=== PATIENT | female | born 1960 | race Caucasian/White ===

== ENCOUNTER 2017-06-01 20:11 | Inpatient (IN) | payer OTHER ==
[~2017-06-01] VITALS: Ht 172.7 cm; Wt 88.0 kg
--- NOTE | 2017-06-01 20:20 | NUR ---
EKG COMPLETED. PT TO ROOM T2B.
--- NOTE | 2017-06-01 21:00 | NUR ---
COMFORT MEASURES AND SUPPORTIVE CARE INITIATED. SEEN BY ERMD. ORDERS NOTED.
[2017-06-01 21:39] LABS: BASOPHIL % 0.3 % (0-2); PLATELET COUNT 377 x10^3mcL (130-400); RED CELL DISTRIBUTION WIDTH 13.5 % (11.5-14.5)
[2017-06-01 21:50] LABS: CALCIUM 9.1 mg/dL (8.5-10.1); CARBON DIOXIDE 30.9 mmol/L (21-32); CREATININE SERUM 1.2 mg/dL (0.6-1.0); POTASSIUM SERUM 3.2 mmol/L (3.5-5.1)
[2017-06-01 21:57] LABS: ALBUMIN 3.5 g/dL (3.4-5.0); BILIRUBIN TOTAL 0.8 mg/dL (0.20-1.00); TOTAL PROTEIN, SERUM 7.9 g/dL (6.4-8.2)
--- NOTE | 2017-06-01 23:38 | NUR ---
PT REMAINS STABLE. IV ABX INITIATED. ADDITIONAL ANALGESIA GIVEN AT PT REQUEST. REPORT CALLED TO HEYDI LOPEZ FOR ADMIT TO ROOM 253B.
--- NOTE | 2017-06-01 23:56 | NUR ---
KANDI INITIATED. PREP FOR TRANSPORT TO FLOOR. PT STATES MOD PAIN RELIEF FROM MORPHINE 2MG IVP.VSS. NAD.
--- NOTE | 2017-06-01 23:59 | NUR ---
PT UNABLE TO URINATE THROUGHOUT ED COURSE. URINE NOT COLLECTED. REPORTED TO FLOOR RN.
[2017-06-02] VITALS (11 sets, daily range): BP systolic 82–118; BP diastolic 38–76; Ht 172.7 cm; Wt 88.0 kg
[2017-06-02 00:09] LABS: CHOLESTEROL/HDL RATIO 3.1; MAGNESIUM 2.3 mg/dL (1.8-2.4); PHOSPHOROUS 4.1 mg/dL (2.5-4.9); T3 TOTAL 0.95 ng/mL
[2017-06-02 00:16] LABS: FREE T4 1.16 ng/dL (0.76-1.46); FREE THYROXINE INDEX 2.6 ug/dL (1.4-4.5); T4(THYROXINE) 7.8 ug/dL (4.7-13.3)
--- NOTE | 2017-06-02 00:17 | NUR ---
REC'D PT FROM ER VIA LASHAUN. PT IS AAOX4. TELE #24 SR. PT C/O 10/10 BUTTOCK PAIN. RESP EVEN AND UNLABORED. NO SOB NOTED. TRACE EDEMA NOTED TO BLE. ABD SOFT. BS ACTIVE X4. PT C/O CONSTIPATION. IV NOTED TO . FLAGYL CONTINUES TO INFUSE. ORIENTED PT TO CALL LIGHT. BED IN LOWEST POSITION. WILL ENDORSE TO PRIMARY RN.
--- NOTE | 2017-06-02 00:58 | NUR ---
DR GOODSON AT BEDSIDE.
--- NOTE | 2017-06-02 01:00 | NUR ---
DR LEA AT BEDSIDE ASSESSING PATIENT, SKIN WARM AND DRY TO TOUCH. PERIRECTAL ABSCESS STILL CLOSED, NO DRAINAGE NOTED. BILATERA; LOWER EXTREMITIES WITH TRACED EDEMA. INSTRUCTED PATIENT TO SAVE URINE FOR UA/CS AND URINF DRUG SCREENING. MAINTAINED ON NPO PER MD'S ORDER. PT COOPERATIVE WITH CURRENT PLAN OF CARE.
--- NOTE | 2017-06-02 01:10 | NUR ---
POTASSIUM LEVEL =3.2 DR DICKERSON MADE AWARE AWAITING FOR NEW ORDER. WILL REPEAT BMP AT 0500. WILL CONTINUE TO MONITOR.
--- NOTE | 2017-06-02 03:10 | NUR ---
C/O SEVERE PERIRCTAL PAIN ON SCALE 10/10. DILAUDID 0.5MG GIVEN IVP PRN MEDICATION. WILL CONTINUE TO MONITOR.
--- NOTE | 2017-06-02 06:04 | NUR ---
URINE SPECIMEN COLLECTED FOR UA AND UDS AND SENT TO LAB. GOOD PERICARE RENDERED. STARTED ON ATB IVPB FOR MANAGEMENT OF PERIRECTAL ABSCESS. NO ADVERSE REACTION NOTED FROM ATB THERAPY. KEPT CLEAN AND DRY. ALL NEEDS ATTENDED. APPARENTLY COMFORTABLE AT THIS TIME.
[2017-06-02 06:51] LABS: BASOPHIL % 0.4 % (0-2); PLATELET COUNT 292 x10^3mcL (130-400); RED CELL DISTRIBUTION WIDTH 13.4 % (11.5-14.5)
--- NOTE | 2017-06-02 07:40 | NUR ---
PT RECEIVED AAOX4, CONVERSING WELL IN FULL SENTENCES. RESP EVEN AND UNLABORED ON RA. DENIES ANY SOB OR COUGH. TELE #24, SR, HR 74. DENIES ANY CP OR PRESSURE. IV ON RHAND INTACT, 20G, INFUSING NS AT 100ML/HR. ABD ROUND/SOFT WITH ACTIVE BS IN ALL QUADS. VOIDING WELL WITH BRP. AMBULATES INDEPENDENTLY. C/O PERIRECTAL PAIN ON AMBULATION. KEPT NPO ORDERED. CALL LIGHT WITHIN REACH.
[2017-06-02 07:56] LABS: CALCIUM 8.2 mg/dL (8.5-10.1); CARBON DIOXIDE 26.6 mmol/L (21-32); CHLORIDE SERUM 104 mmol/L (98-107); GFR1 > 60 mL/min; GLUCOSE SERUM 101 mg/dL (74-106); MAGNESIUM 1.9 mg/dL (1.8-2.4); PHOSPHOROUS 3.5 mg/dL (2.5-4.9); POTASSIUM SERUM 3.3 mmol/L (3.5-5.1); SODIUM SERUM 139 mmol/L (136-145)
[2017-06-02 08:05] LABS: AMPHETAMINE QUAL UR POSITIVE (NEG <=1000)
--- NOTE | 2017-06-02 08:40 | NUR ---
SPOKE WITH OUR PHARMACIST. PT TOOK XARELTO AT HOME AT 1130. PER PHARMACIST, NEEDS TO WAIT 24HOURS BEFORE STARTING HEPARIN DRIP.
--- NOTE | 2017-06-02 08:49 | NUR ---
BP 88/47, MAP 55 ON RIGHT ARM. RECHECK BP 89/51, MAP 61 ON LEFT ARM. PT ASYMPTOMATIC, DENIES ANY DIZZINESS OR CHEST PAIN. HEAD OF BED LOWERED. DR JULIEN PAGED TO MAKE AWARE.
[2017-06-02 08:54] LABS: UA SPECIFIC GRAVITY <=1.005 (1.005-1.035); microscopic required? YES; urine erythrocyte 1+ (NEGATIVE)
--- NOTE | 2017-06-02 10:01 | NUR ---
HOSE SPRAYER CALLED TO REPORT HR 45. CHECKED ON PATIENT, PT IN DEEP SLEEP. EASILY AROUSABLE TO VOICE. ASYMPTOMATIC. DENIES ANY DIZZINESS OR CHEST PAIN. TEMP 98.3, BP 82/39, MAP 49, HR 62, SAT 94% ON RA. DR JULIEN MADE AWARE, AT BEDSIDE TO ASSESS.
--- NOTE | 2017-06-02 11:14 | NUR ---
500ML NS BOLUS COMPLETE. BP 83/38, MAP 52, HR 56. ASYMPTOMATIC. HOB KEPT LOW. DR JULIEN PAGED TO MAKE AWARE.
--- NOTE | 2017-06-02 11:30 | NUR ---
PT SCHEDULED FOR I&D AT 1500. HEPARIN DRIP NOT STARTED. DR JULIEN MADE AWARE.
--- NOTE | 2017-06-02 13:27 | NUR ---
CONSENT FOR I&D SIGNED BY PATIENT. ALL QUESTIONS ADDRESSED AT THIS TIME.
--- NOTE | 2017-06-02 13:40 | NUR ---
BP 105/57, HR 67 AFTER 2ND 500ML NS BOLUS. PT REMAINS ASYMPTOMATIC. DR AVENDANO TO MAKE AWARE. WILL CONTINUE TO MONITOR
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
--- NOTE | 2017-06-02 13:55 | NUR ---
NEW IV STARTED BY RN STUDENT UNDER INSTRUCTOR SUPERVISION. 20G IV STARTED ON RFA, ATTEMPTED X1. PT TOLERATED WELL WITHOUT COMPLAINTS. IV WITH GOOD BLOOD RETURN NOTED.
--- NOTE | 2017-06-02 15:53 | NUR ---
CONFIRMED WITH DR JULIEN NOT TO START HEPARIN DRIP. PT TO START XARELTO TODAY.
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
--- NOTE | 2017-06-02 18:44 | NUR ---
PT MEDICATED FOR BUTTOCK PAIN ORDERED PRN, SEE EMAR. PT CURRENTLY ASLEEP WITH RESP EVEN AND UNLABORED. TOLERATED DINNER WELL WITH NO C/O NAUSEA OR ABD PAIN. WILL CONTINUE TO MONITOR.
--- NOTE | 2017-06-02 20:00 | NUR ---
RECEIVED PT IN BED, ALERT AND ORIENTED. DENIES HEADACHE/DIZZINESS. RESP. EVEN AND UNLABORED. ON ROOM AIR, LUNGS SOUNDS CLEAR BILAT. NO DISTRESS NOTED. SR/SB ON THE MONITOR, DENIES CHEST PAIN OR ANY DISCOMFORT AT THIS TIME. AFEBRILE AND VITAL SIGNS STABLE. IVF, NS AT 100ML/HR, INTACT AND INFUSING VIA RFA, SITE CLEAR. NO COMPLAINTS NOTED AT THIS TIME. ASSISTED WITH HS CARE. CALL LIGHT WITHIN REACH. WILL CONTINUE TO MONITOR.
--- NOTE | 2017-06-02 23:00 | NUR ---
CONPLAINED OF PAIN TO BACK/BUTTOCKS , /, MEDICATED WITH NORCO PO ORDERED. WILL CONTINUE TO MONITOR.
--- NOTE | 2017-06-03 00:34 | NUR ---
PT STATES PAIN RELIEF. MEDICATED WITH AMBIEN PO FOR SLEEP PER PT REQUEST. WILL CONTINUE TO MONITOR.
--- NOTE | 2017-06-03 02:14 | NUR ---
AWAKE, COMPLAINING OF BACK PAIN, 01/11, REQUWSTING PAIN MED. MEDICATED WITH NORCO PO ORDERED. WILL CONTINUE TO MONITOR.
--- NOTE | 2017-06-03 04:18 | NUR ---
NO COMPLAINTS NOTED. SLEEPING , EASILY AROUSABLE. NO DISTRESS NOTED. WILL CONTINUE TO MONITOR.
[2017-06-03 05:25] VITALS: BP 96/56
--- NOTE | 2017-06-03 06:13 | NUR ---
NO COMPLAINTS NOTED AT THIS TIME. DOOZING OFF AND ON, RESP. EVEN AND UNLABORED. NO DISTRESS NOTED. AFEBRILE AND VITAL SIGNS STABLE. SR ON THE MONITOR,DENIES CP OR PRESSURE. DUE MEDS GIVEN ORDERED, ANETA. WELL. IVF INTACT AND INFUSING WELL, SITE CLEAR.VOIDING FREELY. KEPT COMFORTABLE. WILL CONTINUE TO MONITOR.
[2017-06-03 06:31] LABS: BASOPHIL % 0.3 % (0-2); PLATELET COUNT 273 x10^3mcL (130-400); RED CELL DISTRIBUTION WIDTH 13.6 % (11.5-14.5)
[2017-06-03 06:39] LABS: CALCIUM 8.2 mg/dL (8.5-10.1); CARBON DIOXIDE 26.8 mmol/L (21-32); CHLORIDE SERUM 106 mmol/L (98-107); CREATININE SERUM 0.9 mg/dL (0.6-1.0); GFR1 > 60 mL/min; GLUCOSE SERUM 90 mg/dL (74-106); MAGNESIUM 1.9 mg/dL (1.8-2.4); PHOSPHOROUS 2.7 mg/dL (2.5-4.9); POTASSIUM SERUM 3.8 mmol/L (3.5-5.1); SODIUM SERUM 139 mmol/L (136-145)
--- NOTE | 2017-06-03 07:55 | NUR ---
AWAKE,ALERT AND ORIENTED,DENIES ANY PAIN AT THIS TIME. CALL LIGHT W/ IN REACH. ABLE TO AMBULATE IN THE BATHROOM AND VOIDING,CONT. IV FLUIDS AND IV ANTIBIOTIC ORDERED,NO ACUTE DISTRESS NOTED. WILL CONT. PLAN OF CARE.
--- NOTE | 2017-06-03 08:45 | NUR ---
DR. LARA WAS HERE MADE ROUNDS W/ OTHER MEDICAL STAFF AND UPDATED PT. PLAN OF CARE.
--- NOTE | 2017-06-03 09:40 | NUR ---
PT. C/O PAIN IN PERIRECTAL AREA MEDICATED FOR PAIN ORDERED.MADE COMFORTABLE IN BED.CALL LIGHT W/ IN REACH
[2017-06-03 09:54] VITALS: BP 106/62
--- NOTE | 2017-06-03 11:30 | NUR ---
RECEIVED ORDERS FOR US GUIDED DRAINAGE OF PERIRECTAL ABSCESS. CASE REVIEWED BY BELIA WITT AND Crispin FARMER, DEFERRED TO SURGEON. SPOKE WITH PATIENT'S NURSE RADHA TO NOTIFY HER. SPOKE WITH ORDERING PHYSICIAN DR JULIEN AND NOTIFIED HER ALSO. GAVE DR JULIEN CONTACT INFORMATION FOR DR WITT. ALSO UPDATED CHARGE NURSE CARROLL/
[2017-06-03 13:14] VITALS: BP 112/54
[2017-06-03 16:51] VITALS: BP 100/52
--- NOTE | 2017-06-03 17:00 | NUR ---
DR. JULIEN VERIFIED ORDERS REGARDING HEPARIN DRIP W/ ORDERS ,STARTED ON HEPRIN DRIPS ORDERED PT. HX OF PE .PT. DENIES SOB,DENIES CHEST PAIN ON RA LUNG SOUNDS CLEAR.NO ACUTE DISTRESS NOTED.
--- NOTE | 2017-06-03 17:00 | NUR ---
FOLLOWED W/ HEPARIN PROTOCOL ,WILL CONT. TO MOMITOR NEXT PTT DRAW 2100 PM
--- NOTE | 2017-06-03 20:00 | NUR ---
RECEIVED PT IN BED, RESTING QUIETLY. ALERT AND ORIENTED. DENIES HEADACHE/DIZZINESS. RESP. EVEN AND UNLABORED. ON ROOM AIR, NO DISTRESS NOTED. AFEBRILE AND VITAL SIGNS STABLE. SR ON THE MONITOR,. DENIES CHEST PAIN OR ANY DISCOMFORT AT THIS TIME. ON HEPARIN DRIP AT 11ML/HR, (1100UNITS/HR) , NO ACTIVE BLEEDING NOTED. IVF, NS AT 100ML/HR ALSO INFUSING. SITES CLEAR. ASSISTED WITH HS CARE.NO COMPLAINTS NOTED AT THIS TIME. CALL LIGHT WITHIN REACH. WILL CONTINUE TO MONITOR.
[2017-06-03 21:57] VITALS: BP 110/62
--- NOTE | 2017-06-03 22:06 | NUR ---
PTT READING SHOWS 61.1, NO ADJUSTMENT REQUIRED PER PROTOCOL. REMAINS ON HEPARIN DRIP AT 1100UNITS/HR. WILL CONTINUE TO MONITOR.
[2017-06-04] VITALS (7 sets, daily range): BP systolic 83–114; BP diastolic 39–84
--- NOTE | 2017-06-04 | NUR ---
HEPARIN DRIP DISCONTINUED ORDERED.INSTRUCTED PT TO MAINTAIN NPO ORDERED. FOR SURG. IN AM. PT VERBALIZED UNDERSTANDING. WILL CONTINUE TO MONITOR.
--- NOTE | 2017-06-04 06:27 | NUR ---
SLEPT WELL. MEDICATED FOR BACK PAIN ORDERED, RELIEF OBTAINED. NPO SINCE [place] MAINTAINED.FOR SURG. THIS AM. IVF INTACT AND INFUSING WELL, SITE CLEAR. KEPT COMFORTABLE. AFEBRILE AND VITAL SIGNS STABLE. RESP. EVEN AND UNLABORED. NO DISTRESS NOTED. ETHEL SKIN WASH DONE. WILL ENDORSE TO INCOMING NURSE.
[2017-06-04 06:29] LABS: BASOPHIL % 0.3 % (0-2); PLATELET COUNT 270 x10^3mcL (130-400); RED CELL DISTRIBUTION WIDTH 13.7 % (11.5-14.5)
[2017-06-04 07:04] LABS: CALCIUM 8.2 mg/dL (8.5-10.1); CARBON DIOXIDE 27.2 mmol/L (21-32); CHLORIDE SERUM 108 mmol/L (98-107); CREATININE SERUM 0.9 mg/dL (0.6-1.0); GFR1 > 60 mL/min; GLUCOSE SERUM 90 mg/dL (74-106); MAGNESIUM 1.9 mg/dL (1.8-2.4); PHOSPHOROUS 3.2 mg/dL (2.5-4.9); SODIUM SERUM 141 mmol/L (136-145)
--- NOTE | 2017-06-04 07:55 | NUR ---
RECEIVED PT IN BED A/A/OX4 DENIES VELASQUEZ. RESP EVEN AND UNLABORED WITH CLEAR BS BILAT. DENIES ANY SOB/CP/PRESSURE AT THIS TIME. SB ON TELE HR IN 50S. NO EDEMA NOTED. IVF TO RFA AND SL TO RH. ABD SOFT, NONTENDER WITH ACTIVE BS X4. DENIES ANY N/V AT THIS TIME. REPORTS OCC PERIRECTAL PRESSURE. VOIDING FREELY, OCC STRESS INCONTINENCE. AMBULATORY. CALL LIGHT IN REACH NEEDS ATTENDED TO.
--- NOTE | 2017-06-04 07:58 | NUR ---
PT TAKEN DOWN TO OR FOR PROCEDURE, FREE OF ANY APPARENT DISTRESS.
--- NOTE | 2017-06-04 09:05 | NUR ---
PT RETURN FROM OR PROCEDURE CANCELLED FOR TODAY D/T RECENT XARELTO USE. IVF RESUMED ORDERED. MESSAGE SENT VIA [facility] TO DR. ANDREW. WILL CONT TO MONITOR.
--- NOTE | 2017-06-04 09:49 | NUR ---
PT TAKEN DOWN ONCE MORE TO OR TO ATTEMPT I/D. WILL CONT TO MONITOR.
--- NOTE | 2017-06-04 11:35 | NUR ---
RECEIVED PT BACK FROM OR S/P I+D OF PERIRECTAL ABCESS, NOTED SX SITE WITH 4X4 GAUZE WITH CLEAR TEGADERM DRSG IN PLACE. NOTED WITH MODERATE SEROUSANGUINOUS DRAINAGE ON DRSG. DENIES ANY PAIN/DISCOMFORT AT THIS. STATES SHE WANTS TO SLEEP. RESP EVEN AND UNLABORED WITH CLEAR BS BILAT. VS STABLE. CALL LIGHT WHEN IN REACH NEEDS ATTENDED TO.
--- NOTE | 2017-06-04 12:40 | NUR ---
COMFIRMED WITH DR. SILVA THAT HE WAS AWARE OF CONVERSION TO AFIB, MADE AWARE PT HAD NO MEDICATION ON BOARD FOR RATE CONTROL, STATED HE WAS AWARE AND WILL BE ORDERING MEDICATION. WILL AWAIT NEW ORDERS.
--- NOTE | 2017-06-04 13:55 | NUR ---
DR. ANDREW AT BEDSIDE TO EVAL PT. INQUIRED IF WE COULD RESUME XARELTO OR HEPARIN. WELL TO CHECK WITH DR. SALDANA IF TOP LAYER OF SRSG COULD BE CHANGE OR IF WE COULD ONLY REINFORCE SINCE PT HAS STRESS INCONTINENCE AND DRSG IN SOILED AT THIS TIME. MD SPOKE WITH DR. SALDANA WHO GAVE OK TO RESUME XARELTO AND TO CHANGE TOP DRSG WHEN NEEDED. MD TO ENTER NEW ORDERS. WILL CONT TO MONITOR.
--- NOTE | 2017-06-04 15:20 | NUR ---
TOP DRSG FELL OF WHILE USING RESTROOM. TOP OF DRSG CHANGED. PLACED 4X4 GAUZE SECURED WITH ISLAND DRSG. WILL CONT TO MONITOR.
--- NOTE | 2017-06-04 15:30 | NUR ---
MADE AWARE BY TELE MONITOR THAT PT'S RHYTHM HAD GONE FOR SB, TO OCC HAVING BBB AFTER RETURNING TO OR TO A CLEAR PERSISTANT READING OF BBB WITH DEPRESSED TWAVE AND TACHICARDIA. DR. ANDREW SHOWN TELE STRIPS FROM THIS MORNING AND THE STRIPS SHOWING CHANGES. STATED SHE WILL ORDER STAT EKG.
--- NOTE | 2017-06-04 15:50 | NUR ---
DR. ANDREW SHOWN EKG RESULTS NSR WITH RT BBB, NO NEW ORDERS.
--- NOTE | 2017-06-04 16:00 | NUR ---
PT GIVEN 1X DOSE ORDER OF DIALUDID IVP FORC/O PAIN AT THIS TIME.
--- NOTE | 2017-06-04 18:15 | NUR ---
NOTED WITH DRSG TO LT INNER BUTTOCK AT PERIRECTAL AREA WITH SOILED DRSG NEW DRSG PLACED. PT DENIES ANY DISCOMFORT. CALL LIGHT IN REACH NEEDS ATTENDED TO.
--- NOTE | 2017-06-04 20:08 | NUR ---
RECEIVED PT IN BED, RESTING QUIETLY IN BED.ALERT AND ORIENTED. DENIES PAIN OR ANY DISCOMFORT AT THIS TIME. RECTAL PACKING IN PLACE,DRESSING INTACT. RESP. EVEN AND UNLABORED. ON ROOM AIR, NO DISTRESS NOTED. AFEBRILE AND VITAL SIGNS STABLE. IVF , NS AT 100ML/HR, INTACT AND INFUSING VIA RT FORE ARM. SITE CLEAR.ABLE TO TURN AND REPOSITION SELF IN BED. SR/SB ON THE MONITOR. DENIES CHEST PAIN OR PRESSURE. ASSISTED WITH HS CARE. CALL LIGHT WITHIN REACH. WILL CONTINUE TO MONITOR.
--- NOTE | 2017-06-04 22:13 | NUR ---
COMPLAINED OF PAIN TO RECTAL AREA, 5/10, MEDICATED WITH NORCO PO ORDERED. WILL CONTINUE TO MONITOR.
--- NOTE | 2017-06-04 23:50 | NUR ---
NOTED DRESSING TO LT INNER BUTTOCK AT PERIRECTAL AREA SOILED , NEW DRESSING APPLIED. PT STATES PAIN RELIEF AT THIS TIME. NO COMPLAINTS NOTED. WILL CONTINUE TO MONITOR.
--- NOTE | 2017-06-05 03:02 | NUR ---
ASLEEP, EASILY AROUSABLE. NO DISTRESS NOTED. IVF INFUSING , SITE CLEAR. WILL CONTINUE TO MONITOR.
[2017-06-05 04:59] VITALS: BP 101/52
[2017-06-05 06:13] LABS: BASOPHIL % 0.3 % (0-2); PLATELET COUNT 255 x10^3mcL (130-400); RED BLOOD CELLS 3.24 M/mm3 (4.10-5.10); RED CELL DISTRIBUTION WIDTH 13.3 % (11.5-14.5)
[2017-06-05 06:24] LABS: CALCIUM 8.4 mg/dL (8.5-10.1); CARBON DIOXIDE 27.6 mmol/L (21-32); CHLORIDE SERUM 108 mmol/L (98-107); CREATININE SERUM 0.8 mg/dL (0.6-1.0); GFR1 > 60 mL/min; GLUCOSE SERUM 121 mg/dL (74-106); MAGNESIUM 1.9 mg/dL (1.8-2.4); PHOSPHOROUS 3.3 mg/dL (2.5-4.9); POTASSIUM SERUM 3.8 mmol/L (3.5-5.1); SODIUM SERUM 141 mmol/L (136-145)
--- NOTE | 2017-06-05 06:30 | NUR ---
MEDICATED FOR RAKESH RECTAL AREA DISCOMFORT WITH RELIEF. NO COMPLAINTS NOTED AT THIS TIME. AFEBRILE AND VITAL SIGNS STABLE. SR/SB ON THE MONITOR, DENIES CHEST PAIN OR PRESSURE. DUE MEDS GIVEN ORDERED, ANETA. WELL. IVF INTACT AND INFUSING WELL. RAKESH-RECTAL AREA DRESSING DRY AND INTACT. KEPT COMFORTABLE.RESP. EVEN AND UNLABORED. NO DISTRESS NOTED. WILL ENDORSE TO INCOMING NURSE.
[2017-06-05 06:32] LABS: IRON 36 ug/dL (50-170)
[2017-06-05 06:33] LABS: TOTAL IRON BINDING CAPACITY 187 ug/dL (250-450)
--- NOTE | 2017-06-05 08:40 | NUR ---
DR. ANDREW MADE AWARE OF PT'S FREQUENT EPISODES OF BRADYCARDIA DURING THE NIGHT. WILL CONT TO MONITOR.
--- NOTE | 2017-06-05 10:00 | NUR ---
PT HAD LOOSE BM, DRGS CHANGE PROVIDED AT THIS TIME. CALL LIGHT IN REACH NEEDS ATTENDED TO.
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
[2017-06-05 10:38] VITALS: BP 96/49
[2017-06-05] MEDS ORDERED: XARELTO20 M1 PO (12:03)
[2017-06-05] MEDS ORDERED: HYZAAR1 TAB PO (12:05)
[2017-06-05] MEDS ORDERED: NOR10T PO (12:21)
--- NOTE | 2017-06-05 12:43 | NUR ---
PT C/L PAIN TO PERIRECTAL AREA MEDICATED WITH NORCO PO ORDERED.
[2017-06-05 12:47] VITALS: BP 96/49
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
[2017-06-06 07:23] LABS: TRANSFERRIN 154 mg/dL (200-370)
== END 2017-06-05 14:02 | disposition home or self-care (01) | DRG 344 ==
LOC: ED 20:11 → DU 22:47
PROVIDERS: Emergency Medicine; Family Medicine; Surgery; ADMIT Family Medicine
PROC: 0D9P0ZZ Drainage of Rectum, Open Approach (ICD-10-PCS; principal; 2017-06-04 08:30)
DX: K61.1 Rectal abscess (principal); N17.0 Acute kidney failure with tubular necrosis; N39.0 Urinary tract infection, site not specified; E87.6 Hypokalemia; E83.51 Hypocalcemia; I10 Essential (primary) hypertension; D64.9 Anemia, unspecified; Z68.29 Body mass index [BMI] 29.0-29.9, adult; Z86.711 Personal history of pulmonary embolism; Z79.01 Long term (current) use of anticoagulants; Z86.718 Personal history of other venous thrombosis and embolism
CPT/HCPCS: 83880; 84439; 90658; 94150; J1170; J1642; J1644; J2001; J2270; J2405; J2543; J2704; J3010; J3480; J3490; J7030; J7120; Q0092; Q9967

== ENCOUNTER 2018-03-17 21:15 | Emergency (ER) | payer OTHER, MEDICAID ==
[~2018-03-17] VITALS: Ht 170.2 cm; Wt 88.9 kg
[~2018-03-17 21:15] MED LIST: BD LACTINEX1.4 MG PO; DOXYCYCLINE HY100 MG PO; HYZAAR1 TAB PO; NEU100 PO; NOR10T PO; XARELTO20 M1 PO
[2018-03-17 21:22] VITALS: BP 133/76; Ht 170.2 cm; Wt 88.9 kg
[2018-03-17 22:28] LABS: BASOPHIL % 0.5 % (0-2); PLATELET COUNT 227 x10^3mcL (130-400); RED CELL DISTRIBUTION WIDTH 14.6 % (11.5-14.5)
[2018-03-17 22:39] LABS: CALCIUM 8.9 mg/dL (8.5-10.1); CARBON DIOXIDE 27.8 mmol/L (21-32); CHLORIDE SERUM 106 mmol/L (98-107); CREATININE SERUM 0.9 mg/dL (0.6-1.0); GFR1 > 60 mL/min; GLUCOSE SERUM 107 mg/dL (74-106); POTASSIUM SERUM 3.8 mmol/L (3.5-5.1); SODIUM SERUM 142 mmol/L (136-145)
== END 2018-03-17 23:43 | disposition home or self-care (01) ==
LOC: ED 21:15
PROVIDERS: Emergency Medicine
DX: G89.29 Other chronic pain (principal); M79.605 Pain in left leg; J44.9 Chronic obstructive pulmonary disease, unspecified; I10 Essential (primary) hypertension
CPT/HCPCS: 36415; 83880